=== PATIENT | female | born 1950 | race Caucasian/White ===

== ENCOUNTER → 2018-09-14 | Outpatient (CLI) | payer OTHER ==
[~2018-09-14] VITALS: Ht 165.1 cm; Wt 65.8 kg
[~2018-09-14] MED LIST: ACETAMINOPHEN-1 EAC1 PO; AMLODIPINE BESY10 MG PO; ATIVAN0.5 MG PO; CLARITIN10 MG PO; CRESTOR10 MG PO; FLONASE 0.05%50 MCG NASAL; PLAVIX 75 MG TA75 M1 PO; VENTOLIN HFA 1818 GM INH
[2018-09-14 10:36] VITALS: BP 136/75
[2018-09-14 10:46] LABS: HEMATOCRIT 39.9 % (37.0-47.0); MCH 31.5 pg (26.0-34.0); MCV 89.9 fL (80.0-100.0); RBC 4.44 mil/uL (4.20-5.00); RDW 13.6 % (10.5-14.5); WBC 7.3 thou/uL (4.0-11.0)
[2018-09-14 10:58] LABS: PROTIME 10.3 Seconds (9.3-11.4)
[2018-09-14 12:45] VITALS: BP 108/65
--- NOTE | 2018-09-14 14:32 | NUR ---
PT HOME WITH DAUGHTER PER WC. VSS. UP WITH STEADY GAIT. HEAVEN DC'D. DISCHARGE INSTRUCTIONS GIVEN AND PT VOICES UNDERSTANDING. [facility]. NO C/O.
== END | disposition home or self-care (01) ==
LOC: SPEC 10:03
PROVIDERS: Radiology Diagnostic Radiology
DX: M80.08XA Age-related osteoporosis with current pathological fracture, vertebra(e), initial encounter for fracture (principal); M54.9 Dorsalgia, unspecified; I10 Essential (primary) hypertension; E78.5 Hyperlipidemia, unspecified; F17.210 Nicotine dependence, cigarettes, uncomplicated; Z86.73 Personal history of transient ischemic attack (TIA), and cerebral infarction without residual deficits; Z98.890 Other specified postprocedural states; Z79.899 Other long term (current) drug therapy